=== PATIENT | male | born 1965 | race Caucasian/White ===

== ENCOUNTER → 2018-02-11 | Outpatient (CLI) | payer MEDICARE, MEDICAID ==
--- NOTE | 2018-02-11 12:12 | RADIOLOGY REPORT (SQ) ---
EXAM DESCRIPTION: CHEST PA/LATERAL COMPLETED DATE/TIME: 02/11/2018 11:53 am REASON FOR STUDY: CHRONIC OBSTRUCTIVE PULMONARY DISEASE, UNSPECIFIED Smoker, cough COMPARISON: None. EXAM PARAMETERS: NUMBER OF VIEWS: two views TECHNIQUE: Digital Frontal and Lateral radiographic views of the chest acquired. RADIATION DOSE: NA LIMITATIONS: none FINDINGS: LUNGS AND PLEURA: Minimal lingular atelectasis. Lungs are otherwise well inflated and kala ar. No pleural effusions or pneumothorax. MEDIASTINUM AND HILAR STRUCTURES: No masses or contour abnormalities. HEART AND VASCULAR STRUCTURES: Heart normal size. No evidence for failure. BONES: Osteoporotic. No acute fracture HARDWARE: None in the chest. OTHER: No other significant finding. IMPRESSION: NO SIGNIFICANT RADIOGRAPHIC FINDING IN THE CHEST. TECHNICAL DOCUMENTATION: JOB ID: [id number] [employer]- All Rights Reserved Reading location - IP/workstation name: [facility]
== END ==
LOC: OD 11:33
PROVIDERS: ATTEND Family Medicine
DX: J44.9 Chronic obstructive pulmonary disease, unspecified (principal)
CPT/HCPCS: 71046

== ENCOUNTER 2018-08-11 07:59 | Day surgery (SDC) | payer MEDICARE, MEDICAID ==
[~2018-08-11 07:59] MED LIST: PROPOFOL INJ 200 MG/20 ML VIAL IV ONE
[2018-08-11 09:52] VITALS: BP 123/90
--- NOTE | 2018-08-11 12:55 | Operative Report ---
Operative Report DATE OF SURGERY: 08/11/18 Operative Report: The risks benefits and alternatives of the procedure explained to the patient in detail and informed consent is obtained.A GIF Olympus video scope was inserted into the patient's mouth and hypopharynx, the esophagus is identified intubated and insufflated, the scope was then advanced through the esophagus stomach and duodenum, retroflexion maneuver is done ,the esophagus stomach and first and second portions of the duodenum examined. PREOPERATIVE DIAGNOSIS: Dysphagia POSTOPERATIVE DIAGNOSIS: Gastritis status post biopsy rule out Helicobacter pylori. Esophagitis status post biopsy. Schatzki's ring that is broken. Hiatal hernia OPERATION: EGD with biopsy SURGEON: ISAÍAS MARROQUIN ANESTHESIA: LMAC TISSUE REMOVED OR ALTERED: As noted above. COMPLICATIONS: None. ESTIMATED BLOOD LOSS: None. INTRAOPERATIVE FINDINGS: As noted above. PROCEDURE: Patient tolerated the procedure well. No immediate postprocedure complications are noted. Patient is discharged in good condition. Discharge date 08/11/2018. Discharge diet: Regular. Discharge activity: Regular. 2 to 3-week follow-up to discuss findings. Patient is instructed to call the office or proceed to the emergency room should there be any further questions. Wait on the pathology.
== END 2018-08-11 09:45 | disposition home or self-care (01) ==
LOC: END 07:59
PROVIDERS: ATTEND Internal Medicine Gastroenterology
DX: K29.50 Unspecified chronic gastritis without bleeding (principal); K44.9 Diaphragmatic hernia without obstruction or gangrene; K22.2 Esophageal obstruction; K20.9 Esophagitis, unspecified; I25.10 Atherosclerotic heart disease of native coronary artery without angina pectoris; I25.2 Old myocardial infarction; E78.2 Mixed hyperlipidemia; E11.9 Type 2 diabetes mellitus without complications; I11.9 Hypertensive heart disease without heart failure; J44.9 Chronic obstructive pulmonary disease, unspecified; F17.210 Nicotine dependence, cigarettes, uncomplicated; Z79.51 Long term (current) use of inhaled steroids; Z79.84 Long term (current) use of oral hypoglycemic drugs
CPT/HCPCS: 43239; 82962; 88342 ×2; 88305 ×2; J2704; 731

== ENCOUNTER 2018-09-15 07:35 | Day surgery (SDC) | payer MEDICARE, MEDICAID ==
[2018-09-15 09:15] VITALS: BP 111/73
--- NOTE | 2018-09-15 11:48 | Operative Report ---
Operative Report DATE OF SURGERY: 09/15/18 Operative Report: The risks benefits and alternatives of the procedure explained to the patient in detail and informed consent is obtained.A GIF Olympus video scope was inserted into the patient's mouth and hypopharynx ,the esophagus is identified intubated and insufflated ,the scope was then advanced through the esophagus stomach and duodenum, retroflexion maneuver is done ,the esophagus stomach and first and second portions of the duodenum examined. PREOPERATIVE DIAGNOSIS: Carcamo's esophagus POSTOPERATIVE DIAGNOSIS: Carcamo's esophagus status post radiofrequency ablation OPERATION: EGD with radiofrequency ablation SURGEON: ISAÍAS MARROQUIN ANESTHESIA: LMAC TISSUE REMOVED OR ALTERED: None. COMPLICATIONS: None. ESTIMATED BLOOD LOSS: None. INTRAOPERATIVE FINDINGS: As noted above. PROCEDURE: Patient tolerated the procedure well. No immediate postprocedure complications are noted. Patient is discharged in good condition. Discharge date 09/15/2018. Discharge diet: Regular. Discharge activity: Regular. 2 to 3-week follow-up to discuss findings. Patient is instructed to call the office or proceed to the emergency room should there be any further problems or questions.
== END 2018-09-15 09:15 | disposition home or self-care (01) ==
LOC: END 07:35
PROVIDERS: ATTEND Internal Medicine Gastroenterology
DX: K22.719 Barrett's esophagus with dysplasia, unspecified (principal); I25.10 Atherosclerotic heart disease of native coronary artery without angina pectoris; E11.9 Type 2 diabetes mellitus without complications; Z79.4 Long term (current) use of insulin; J44.9 Chronic obstructive pulmonary disease, unspecified; Z96.659 Presence of unspecified artificial knee joint; Z79.51 Long term (current) use of inhaled steroids; Z79.82 Long term (current) use of aspirin; E78.2 Mixed hyperlipidemia; Z86.73 Personal history of transient ischemic attack (TIA), and cerebral infarction without residual deficits; I10 Essential (primary) hypertension; F17.210 Nicotine dependence, cigarettes, uncomplicated
CPT/HCPCS: 43270; J2704; 731

== ENCOUNTER 2018-10-15 08:41 | Emergency (ER) | payer MEDICARE, MEDICAID ==
[2018-10-15 10:19] LABS: ABSOLUTE BASOPHILS # (AUTO) 0.2 10^3/uL (0.0-0.2); ABSOLUTE EOSINOPHILS # (AUTO) 0.6 10^3/uL (0.0-0.6); ABSOLUTE LYMPHOCYTES (AUTO) 2.5 10^3/uL (0.5-4.7); ABSOLUTE NEUT (AUTO) 6.8 10^3/uL (1.7-8.2); BASOPHILS % (AUTO) 1.4 % (0-2); HEMATOCRIT 43.4 % (37.9-51.0); HEMOGLOBIN 14.9 g/dL (13.5-17.0); LYMPHOCYTES % (AUTO) 23.1 % (13-45); MEAN CORPUSCULAR HEMOGLOBIN 30.8 pg (27.0-33.4); MEAN CORPUSCULAR HGB CONC 34.3 g/dL (32.0-36.0); MEAN CORPUSCULAR VOLUME 90 fl (80-97); MONOCYTES % (AUTO) 8.7 % (3-13); PLATELET COUNT 325 10^3/uL (150-450); RED BLOOD COUNT 4.83 10^6/uL (4.35-5.55); RED CELL DISTRIBUTION WIDTH 13.6 % (11.5-14.0); SEGMENTED NEUTROPHILS % (AUTO) 61.8 % (42-78); TOTAL CELLS COUNTED % (AUTO) 100 %
--- NOTE | 2018-10-15 10:19 | RADIOLOGY REPORT (SQ) ---
EXAM DESCRIPTION: CHEST SINGLE VIEW COMPLETED DATE/TIME: 10/15/2018 10:10 am REASON FOR STUDY: leg swelling COMPARISON: 02/11/2018 EXAM PARAMETERS: NUMBER OF VIEWS: One view. TECHNIQUE: Single frontal radiographic view of the chest acquired. RADIATION DOSE: NA LIMITATIONS: None. FINDINGS: LUNGS AND PLEURA: No opacities, masses or pneumothorax. No pleural effusion. MEDIASTINUM AND HILAR STRUCTURES: No masses. Contour normal. HEART AND VASCULAR STRUCTURES: Heart normal in size. Normal vasculature. BONES: No acute findings. HARDWARE: None in the chest. OTHER: No other significant finding. IMPRESSION: NO ACUTE RADIOGRAPHIC FINDING IN THE CHEST. TECHNICAL DOCUMENTATION: JOB ID: [id number] [employer]- All Rights Reserved Reading location - IP/workstation name: [email or web address]
[2018-10-15 10:43] LABS: ALBUMIN 4.1 g/dL (3.5-5.0); ALKALINE PHOSPHATASE 67 U/L (38-126); ANION GAP 10 (5-19); ASPARTATE AMINO TRANSFERASE 22 U/L (17-59); BILIRUBIN,DIRECT 0.3 mg/dL (0.0-0.4); BILIRUBIN,TOTAL 0.7 mg/dL (0.2-1.3); BLOOD UREA NITROGEN 21 mg/dL (7-20); CALCIUM 9.7 mg/dL (8.4-10.2); CARBON DIOXIDE 28 mmol/L (22-30); CHLORIDE 97 mmol/L (98-107); GLUCOSE 147 mg/dL (75-110); POTASSIUM 4.2 mmol/L (3.6-5.0); TOTAL PROTEIN 7.1 g/dL (6.3-8.2)
--- NOTE | 2018-10-15 11:07 | ER Document Report ---
ED General - General Chief Complaint: Leg Swelling Stated Complaint: LEG PAIN Time Seen by Provider: 10/15/18 09:38 Primary Care Provider: ROMAN JNOES DO [Primary Care Provider] - Follow up tomorrow TRAVEL OUTSIDE OF THE [place] IN LAST 30 DAYS: No - HPI Notes: 53-year-old male with history of COPD, heart attack x2, hyperlipidemia, diabetes, smoker to the emergency department with complaints of bilateral leg swelling for the past month. He states that his primary care has been treating him with a "water pill" for the past month but it has not helped with his leg swelling or pain. He does note that his pain seems to get worse with walking. He states that he has not had any fevers, breakdown the skin to the legs, recent travel. He has never had a DVT. He does have a history of MS, "a couple of mini strokes", and carotid stenosis that is at 60% bilaterally. He denies any falls or blunt trauma. - Related Data Allergies/Adverse Reactions: meloxicam [From [facility]] Allergy (Verified 10/15/18 09:14) Past Medical History - General Information source: Patient - Social History Smoking Status: Current Every Day Smoker Chew tobacco use (# tins/day): No Frequency of alcohol use: Rare Drug Abuse: Marijuana Family History: Reviewed & Not Pertinent Patient has suicidal ideation: No Patient has homicidal ideation: No - Past Medical History Cardiac Medical History: Reports: Hx Coronary Artery Disease, Hx Heart Attack - X2, Hx Hypertension Pulmonary Medical History: Reports: Hx Asthma, Hx Bronchitis, Hx COPD, Hx Pneumonia Neurological Medical History: Denies: Hx Cerebrovascular Accident, Hx Seizures Renal/ Medical History: Denies: Hx Peritoneal Dialysis Musculoskeletal Medical History: Reports Hx Arthritis Past Surgical History: Reports: Hx Orthopedic Surgery - knee - Immunizations Hx Diphtheria, Pertussis, Tetanus Vaccination: Yes Hx Pneumococcal Vaccination: 03/20/18 Review of Systems - Review of Systems Constitutional: denies: Chills, Fever EENT: No symptoms reported Cardiovascular: denies: Chest pain, Palpitations, Syncope, Dizziness, Lightheaded Respiratory: Short of breath - States that he has daily shortness of breath because of COPDnot worse since leg swelling began.. denies: Cough Gastrointestinal: denies: Abdominal pain, Diarrhea, Nausea, Vomiting Genitourinary: No symptoms reported Musculoskeletal: See HPI, Leg swelling Skin: No symptoms reported Hematologic/Lymphatic: No symptoms reported Neurological/Psychological: No symptoms reported -: Yes All other systems reviewed and negative Physical Exam - Vital signs Vitals: Temp Pulse Resp BP Pulse Ox 97.7 F 100 20 114/54 L 97 10/15/18 08:46 10/15/18 08:46 10/15/18 08:46 10/15/18 08:46 10/15/18 08:46 Interpretation: Normal - General General appearance: Appears well, Alert Notes: Chronically ill-appearing. Truncal obesity. Evidence of long-term smoking. - HEENT Head: Normocephalic, Atraumatic Eyes: Normal Pupils: PERRL - Respiratory Respiratory status: No respiratory distress Chest status: Nontender, Prolonged expirations - Noted prolonged expirations with pursed lipped breathing consistent with COPD Breath sounds: Normal. No: Rales, Rhonchi, Stridor, Wheezing Chest palpation: Normal - Cardiovascular Rhythm: Regular Heart sounds: Normal auscultation Murmur: No - Abdominal Inspection: Morbidly Obese Distension: No distension Bowel sounds: Normal Tenderness: Nontender Organomegaly: No organomegaly - Back Back: Normal - Extremities Calf: Tender - There is noted tenderness to bilateral calves. Bilateral lower legs with edema that is nonpitting. There is discoloration to bilateral lower legs consistent with peripheral vascular disease. No ulcerations. Unable to palpate pulses in feet or posterior tibial. Obtain Doppler bedside and was not able to picker packer pulse either. He does have femoral pulses bilaterally. - Neurological Neuro grossly intact: Yes Cognition: Normal Orientation: AAOx4 Porfirio Coma Scale Eye Opening: Spontaneous Porfirio Coma Scale Verbal: Oriented [place] Coma Scale Motor: Obeys Commands Porfirio Coma Scale Total: 15 Speech: Normal Motor strength normal: LUE, RUE, LLE, RLE Sensory: Normal - Psychological Associated symptoms: Normal affect, Normal mood - Skin Skin Temperature: Warm Skin Moisture: Dry Skin Color: Normal. negative: Dusky Skin irregularity: other - See musculoskeletal for skin description her bilateral lower legs Course - Re-evaluation Re-evalutation: 10/15/[address] Delgado. She agrees with plan for duplex studies both venous and arterial. Patient does not have a cold blue extremity, despite not being able to find his pulses in his feet and posterior tibial. We will cont inue to monitor closely. Suspect patient has claudication. Received phone call from Dr. Falcon who is reading the arterial study. Patient has mild peripheral vascular disease in his right leg and moderate peripheral vascular disease in his left leg. Discussed further with Dr. Delgado. Our plan will be to send patient to vascular for further management. We will place patient on 325 mg of aspirin daily. We will encourage him to walk. Encouraged him to return if any worsening symptoms such as acute lower extremity pain, coolness of extremities, fevers, or any other complaints. - Vital Signs Vital signs: Temp Pulse Resp BP Pulse Ox 98.4 F 93 20 113/71 96 10/15/18 13:59 10/15/18 13:59 10/15/18 13:59 10/15/18 13:59 10/15/18 13:59 - Laboratory Result Diagrams: 10/15/18 10:03 10/15/18 10:03 Laboratory results interpreted by me: 10/15/18 10/15/18 10:03 10:03 WBC 11.0 H Sodium 134.6 L Chloride 97 L BUN 21 H Glucose 147 H - Diagnostic Test Radiology reviewed: Image reviewed, Reports reviewed Discharge - Discharge Clinical Impression: Left leg claudication, Right leg claudication, Peripheral vascular disease, Tobacco use, Bilateral leg pain, Bilateral leg edema Disposition: HOME, SELF-CARE Instructions: Peripheral Vascular Disease ([facility]) Additional Instructions: Follow-up with vascular specialist without fail for further evaluation and management of your leg peripheral vascular disease. Please take a full-strength aspirin dailythat is 325 daily. Take pain medicines as prescribed. Stop smoking without fail. Follow-up with Dr. Jones tomorrow. Vascular specialist follow-up information is as follows: [facility] [address] [place] [address] [place] [id number] Prescriptions: Hydrocodone/Acetaminophen [Wilton 5-325 mg Tablet] 1 tab PO Q6H #15 tablet Forms: Smoking Cessation Education Referrals: ROMAN JONSE DO [Primary Care Provider] - Follow up tomorrow
--- NOTE | 2018-10-15 11:47 | RADIOLOGY REPORT (SQ) ---
EXAM DESCRIPTION: VENOUS BILATERAL LOWER COMPLETED DATE/TIME: 10/15/2018 11:36 am REASON FOR STUDY: BILATERAL leg pain and swelling COMPARISON: None. TECHNIQUE: Dynamic and static barth scale and color images acquired of both lower extremity venous sy stems. Selected spectral images acquired with additional compression and augmentation maneuvers. Imag es stored on PACS. LIMITATIONS: None. FINDINGS: RIGHT LEG COMMON FEMORAL AND FEMORAL: Normal phasicity, compression and augmentation. No visualized echogenic m aterial on barth scale. No defects on color images. POPLITEAL: Normal compression and augmentation. No visualized echogenic material on barth scale. No de fects on color images. CALF VESSELS: Normal compression and augmentation. No visualized echogenic material on barth scale. No defects on color image. GSV AND SSV: Normal compression. No visualized echogenic material on barth scale. No defects on color images. ANY DEEP VENOUS INSUFFICIENCY: Not evaluated. ANY EVIDENCE OF POPLITEAL CYST: No. OTHER: No other significant finding. LEFT LEG COMMON FEMORAL AND FEMORAL: Normal phasicity, compression and augmentation. No visualized echogenic m aterial on barth scale. No defects on color images. POPLITEAL: Normal compression and augmentation. No visualized echogenic material on barth scale. No de fects on color images. CALF VESSELS: Normal compression and augmentation. No visualized echogenic material on barth scale. No defects on color images. GSV AND SSV: Normal compression. No visualized echogenic material on barth scale. No defects on color images. ANY DEEP VENOUS INSUFFICIENCY: Not evaluated. ANY EVIDENCE POPLITEAL CYST: No. OTHER: No other significant finding. IMPRESSION: NO EVIDENCE DVT OR SVT IN EITHER LEG. TECHNICAL DOCUMENTATION: JOB ID: [id number]- All Rights Reserved Reading location - IP/workstation name: [email or web address]
--- NOTE | 2018-10-15 13:45 | XCELERA REPORT ---
[address] [address] Lower Extremity Arterial Evaluation Name: KRISTEN PASTOR Age: 53 yrs Gender: Male : 1965 Patient Status: Emergency Patient Location: ER Study Date: 10/15/2018 10:50 AM Procedure: A color flow and duplex scan of the lower extremity arteries was performed bilaterally with velocity and waveform anaylsis. Reason For Study: leg swelling, leg pain, difficulty finding pulses Ordering Physician: CARMEN BRIDGES Performed By: Nory Irwin Measurements and Calculations Right Left DATABASE DESIGN ANALYST PSV 136.7 128.9 cm/sec Prox PFA PSV -67.2 -97.2 cm/sec Prox SFA PSV 122.6 66.3 cm/sec Mid SFA PSV -124.6 cm/sec Dist SFA PSV -118.0 -47.1 cm/sec Prox Pop A PSV 95.2 42.7 cm/sec Dist ERASMO PSV 103.6 35.0 cm/sec Dist REAL ESTATE MARKETING COORDINATOR PSV 120.8 49.0 cm/sec Pedro Luis Pedis PSV -36.4 19.1 cm/sec Right Side Arterial Evaluation Normal velocity and triphasic waveforms noted in the Common Femoral artery. Biphasic with normal velocity, minimal spectral broadening to the infrageniculate level. Ankle Brachial index not obtained due to discomfort. Left Side Arterial Evaluation Normal velocity and triphasic waveforms noted in the Common Femoral artery. The Femoral is markedly small, occluded with a large collateral vessel to the Distal Femoral or Popliteal. Biphasic with decreased velocity, considerable spectral broadening from Popliteal to the infrageniculate level. Ankle Brachial index not obtained due to discomfort. Critical Findings Study discussed with TYSHAWN Bridges at about 1340 hours. Interpretation Summary Mild hemodynamically significant lesions in the right lower extremity only, on duplex imaging, at rest. Moderate hemodynamically significant lesions in the left lower extremity only, on duplex imaging, at rest. Duplex study shows mild disease with no focal lesion identified, probably impact from the Femoral artery ,on the right. On the left there is unusual finding of small Femoral artery with occlusion , collateral reconstitution.. : CARMEN BRIDGES > Yoshi Falcon
[2018-10-15 14:03] VITALS: BP 113/71
== END 2018-10-15 14:06 | disposition home or self-care (01) ==
LOC: ER 08:41
DX: I73.9 Peripheral vascular disease, unspecified (principal); R60.9 Edema, unspecified; M79.89 Other specified soft tissue disorders; J44.9 Chronic obstructive pulmonary disease, unspecified; E78.5 Hyperlipidemia, unspecified; E11.9 Type 2 diabetes mellitus without complications; F17.210 Nicotine dependence, cigarettes, uncomplicated; I25.2 Old myocardial infarction
CPT/HCPCS: 36415; 71045; 80053; 83735; 83880; 85025; 93925; 93970; 99284

== ENCOUNTER 2018-11-27 15:22 | Emergency (ER) | payer OTHER, MEDICARE, MEDICAID ==
[2018-11-27] MEDS ORDERED: ACETAMINOPHEN 325 MG TABLET PO ONE (15:48)
[2018-11-27] MEDS ORDERED: MORPHINE SULFATE 10 MG/ML INJ IM ONE (15:56)
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
[2018-11-27] MEDS ORDERED: MORPHINE SULFATE 10 MG/ML INJ IV ONE (16:21)
--- NOTE | 2018-11-27 16:23 | RADIOLOGY REPORT (SQ) ---
EXAM DESCRIPTION: ANKLE RIGHT COMPLETE COMPLETED DATE/TIME: 11/27/2018 4:09 pm REASON FOR STUDY: bone tenderness, +deformity COMPARISON: None. NUMBER OF VIEWS: Three views. TECHNIQUE: AP, lateral, and oblique radiographic images acquired of the right ankle. LIMITATIONS: None. FINDINGS: MINERALIZATION: Normal. BONES: There is a fracture of the medial malleolus. There is a crush-type injury of the posterior ta preet. Possible nondisplaced calcaneal fracture. Suspect forefoot injury as well. Recommend CT for f urther evaluation. JOINTS: There is widening of the medial aspect of the tibiotalar joint. The tarsal bones are displac ed medially in relation to the talus. SOFT TISSUES: No soft tissue swelling. No foreign body. OTHER: No other significant finding. IMPRESSION: Complex hind and midfoot fracture dislocation. Recommend CT for further evaluation. TECHNICAL DOCUMENTATION: JOB ID: [id number] [employer]- All Rights Reserved Reading location - IP/workstation name: [email or web address]
[2018-11-27 16:28] LABS: ABSOLUTE BASOPHILS # (AUTO) 0.3 10^3/uL (0.0-0.2); ABSOLUTE EOSINOPHILS # (AUTO) 1.4 10^3/uL (0.0-0.6); ABSOLUTE LYMPHOCYTES (AUTO) 3.3 10^3/uL (0.5-4.7); ABSOLUTE MONOCYTES (AUTO) 1.1 10^3/uL (0.1-1.4); ABSOLUTE NEUT (AUTO) 12.6 10^3/uL (1.7-8.2); BASOPHILS % (AUTO) 1.4 % (0-2); EOSINOPHILS % (AUTO) 7.5 % (0-6); HEMATOCRIT 40.4 % (37.9-51.0); LYMPHOCYTES % (AUTO) 17.8 % (13-45); MEAN CORPUSCULAR HEMOGLOBIN 30.7 pg (27.0-33.4); MEAN CORPUSCULAR HGB CONC 34.6 g/dL (32.0-36.0); MEAN CORPUSCULAR VOLUME 89 fl (80-97); MONOCYTES % (AUTO) 5.9 % (3-13); PLATELET COUNT 431 10^3/uL (150-450); RED BLOOD COUNT 4.55 10^6/uL (4.35-5.55); RED CELL DISTRIBUTION WIDTH 13.8 % (11.5-14.0); SEGMENTED NEUTROPHILS % (AUTO) 67.4 % (42-78); TOTAL CELLS COUNTED % (AUTO) 100 %; WHITE BLOOD COUNT 18.7 10^3/uL (4.0-10.5)
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
[2018-11-27 17:00] LABS: ANION GAP 12 (5-19); BLOOD UREA NITROGEN 26 mg/dL (7-20); CALCIUM 9.9 mg/dL (8.4-10.2); CARBON DIOXIDE 22 mmol/L (22-30); CHLORIDE 100 mmol/L (98-107); GLUCOSE 128 mg/dL (75-110); POTASSIUM 4.8 mmol/L (3.6-5.0)
[2018-11-27] MEDS ORDERED: HYDROMORPHONE HCL INJ/PF 2 MG/ML AMPULE IV ONE ×2 (17:08→18:42)
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
--- NOTE | 2018-11-27 18:01 | RADIOLOGY REPORT (SQ) ---
EXAM DESCRIPTION: FOOT RIGHT COMPLETE COMPLETED DATE/TIME: 11/27/2018 5:43 pm REASON FOR STUDY: foot pain, deformity COMPARISON: None. NUMBER OF VIEWS: Three views. TECHNIQUE: AP, lateral and oblique radiographic images acquired of the right foot. LIMITATIONS: None. FINDINGS: MINERALIZATION: Normal. BONES: There is a hindfoot dislocation with medial displacement of the navicular and cuboid and mid a nd forefoot. A fragment of bone is seen on the AP view, possibly representing fracture of the anteri or process of the calcaneus. JOINTS: No effusions. SOFT TISSUES: No soft tissue swelling. No foreign body. OTHER: No other significant finding. IMPRESSION: Hindfoot dislocation and fracture as described. TECHNICAL DOCUMENTATION: JOB ID: [id number] [employer]- All Rights Reserved Reading location - IP/workstation name: [email or web address]
[2018-11-27 20:24] VITALS: BP 131/84
== END 2018-11-27 20:44 | disposition short-term general hospital (02) ==
LOC: ER 15:22
DX: S92.901A Unspecified fracture of right foot, initial encounter for closed fracture (principal); R07.81 Pleurodynia; V89.2XXA Person injured in unspecified motor-vehicle accident, traffic, initial encounter; F17.200 Nicotine dependence, unspecified, uncomplicated; I25.10 Atherosclerotic heart disease of native coronary artery without angina pectoris; I10 Essential (primary) hypertension; J44.9 Chronic obstructive pulmonary disease, unspecified; I25.2 Old myocardial infarction
CPT/HCPCS: 36415; 85025; 80048; 73610; 73630; 71101; J2270; J1170

== ENCOUNTER 2018-12-10 12:06 | Emergency (ER) | payer OTHER, MEDICARE, MEDICAID ==
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
[2018-12-10 14:55] VITALS: BP 118/70
== END 2018-12-10 14:55 | disposition home or self-care (01) ==
LOC: ER 12:06
DX: G89.18 Other acute postprocedural pain (principal); M79.671 Pain in right foot; F17.200 Nicotine dependence, unspecified, uncomplicated; J44.9 Chronic obstructive pulmonary disease, unspecified; I10 Essential (primary) hypertension; Z88.8 Allergy status to other drugs, medicaments and biological substances; I25.10 Atherosclerotic heart disease of native coronary artery without angina pectoris
CPT/HCPCS: 99283